=== PATIENT | male | born 1955 ===

== ENCOUNTER 2024-04-03 18:00 | Inpatient (IN) | payer MEDICARE, SELFPAY ==
[2024-04-03] VITALS (7 sets, daily range): BP systolic 143–167; BP diastolic 81–95; PULSE 105–129; RESP 17–34; TEMP 36.7; O2SAT 88–100
--- NOTE | ~2024-04-03 | XR_ITS ---
EXAMINATION: XR foot RT min 3V DATE: 04/03/2024 19:46 INDICATION: Change of cellulitis at the right foot TECHNIQUE: Dorsoplantar, two oblique and lateral views of the right foot were obtained. COMPARISON: None. FINDINGS: Diffuse osteopenia. The second-fifth toes are quadrant. Bone alignment is otherwise normal. No fractu re. Polyarticular osteoarthritis, moderate to severe at the first metatarsophalangeal joint, moderate at the first interphalangeal joint and mild at multiple tarsometatarsal and remaining interphalangea l joints. Small plantar calcaneal spur. No cortical erosions or periosteal reaction. Soft tissues are unremarkable. IMPRESSION: 1. 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 N o acute osseous abnormality. Reviewed, dictated and finalized at location A. IMPRESSION: 1. 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 No acute osseous abnormality.
--- NOTE | ~2024-04-03 | US_ITS ---
US arterial ankle brachial ind INDICATION: Poor circulation to the right lower extremity TECHNIQUE: Segmental pressures and plethysmographic and Doppler waveforms of the brachial and lower e xtremity arteries were obtained. COMPARISON: None. FINDINGS: Right and left brachial artery pressures of 129 mm Hg and 130 mm Hg, respectively, are concordant (no rmal difference <= 30 mmHg). The right ankle-brachial index (SENDY) is 1.32 (normal >= 0.9-1.0). The right great toe-brachial index (TBI) is .81 (normal >= 0.60). The left SENDY is 1.27. The left TBI is .85. IMPRESSION: 1. Normal ankle-brachial indices. Reviewed, dictated and finalized at location B.
--- NOTE | ~2024-04-03 | US_ITS ---
EXAMINATION:US venous doppler LE RT INDICATION:Right lower extremity edema TECHNIQUE: Multiple grayscale, color flow and Doppler images of the right lower extremity deep venous systems were obtained and reviewed. COMPARISON:No prior studies for comparison. FINDINGS: The common femoral, superficial femoral and popliteal veins demonstrate normal respiratory variation, augmentation and compressibility. Color flow is also seen within the posterior tibial, pe roneal, greater saphenous and profunda veins. IMPRESSION: 1: No lower extremity deep venous thrombosis. Reviewed, dictated and finalized at location B.
--- NOTE | ~2024-04-03 | NM_ITS ---
EXAMINATION: NM bone 3 phase DATE: 04/06/2024 15:28 INDICATION: Osteopenia and lytic lesion in the right lower leg TECHNIQUE: 25.0 mCi Tc-99m HDP by intravenous route. Scintigrams of the bilateral thighs were obtain ed in angiographic, blood pool, and delayed phases. Additional whole body delayed scintigrams were ob tained. COMPARISON: None. FINDINGS: There is relatively symmetric activity in the bilateral thighs on the angiographic and immediate bloo d pool images. On the delayed images there is prominent asymmetric increased uptake of the bones in t he right foot, distal tibia and fibula without evident correlate on the prior CT images which suggest s sequela of regional hyperperfusion which could be due to complex regional pain syndrome or the prov ided history of cellulitis. Subtle increased uptake is/with 3 old healed fractures of the anterior right seventh-ninth ribs. Mayito tional mild uptake associated with the healing fracture of the right pubic body which is partially ob scured by the activity in the bladder. There is mild likely degenerative increased uptake at the medial compartments of both knees. There is asymmetric increased activity at the right femoral head likely related to osteonecrosis which is mor e extensive at the right femoral head. There is very subtle increased uptake at the mid right femoral diaphysis in the region of the centrally lytic bone lesion with peripheral sclerosis most consistent with a benign. Given the pattern of sclerosis would favor bone infarct over fibrous dysplasia. No ot her suspicious foci of abnormal bone uptake to suggest metastatic disease. IMPRESSION: 1. Prominent asymmetric increased bone activity throughout the right foot and at the distal right ti martha and fibula which suggests sequela of hyperemia such as in the setting of complex regional pain sy ndrome or cellulitis. 2. Minimal increased uptake associated with the peripherally sclerotic lesion along the right femoral diaphysis favoring a benign etiology such as bone infarct or less likely fibrous dysplasia. No other suspicious bone lesions identified to suggest metastatic disease. 3. Asymmetric mild uptake at the right femoral head likely related to the osteonecrosis seen on CT wh ich is more extensive at the right femoral head at the left. Reviewed, dictated and finalized at location A. IMPRESSION: 1. Prominent asymmetric increased bone activity throughout the right foot and at the distal right tibia and fibula which suggests sequela of hyperemia such a s in the setting of complex regional pain syndrome or cellulitis. 2. Minimal increased uptake associated with the peripherally sclerotic lesion a long the right femoral diaphysis favoring a benign etiology such as bone infarc t or less likely fibrous dysplasia. No other suspicious bone lesions identified to suggest metastatic disease. 3. Asymmetric mild uptake at the right femoral head likely related to the osteo necrosis seen on CT which is more extensive at the right femoral head at the le ft.
--- NOTE | ~2024-04-03 | XR_ITS ---
EXAMINATION: XR chest 1V portable DATE: 04/03/2024 18:58 INDICATION: Weakness TECHNIQUE: frontal view of the chest was obtained. COMPARISON: None FINDINGS: Mild streaky opacities in the left lower lung zone most likely atelectasis with mild elevation of the left hemidiaphragm. Calcified nodules in the right upper lung zone consistent with old granulomatous disease. No pulmonary edema, pleural effusion or pneumothorax. Heart size is normal. Atherosclerotic aorta. IMPRESSION: 1. Mild elevation left hemidiaphragm with mild streaky opacities in the left lower lung zone and favo r atelectasis over pneumonia. Reviewed, dictated and finalized at location A. IMPRESSION: 1. Mild elevation left hemidiaphragm with mild streaky opacities in the left lo wer lung zone and favor atelectasis over pneumonia.
--- NOTE | ~2024-04-03 | XR_ITS ---
EXAMINATION: XR hip BI 2V w AP pelvis DATE: 04/04/2024 14:41 INDICATION: Femoral head osteonecrosis. Fracture. TECHNIQUE: An anteroposterior view the pelvis and 2 views of each hip on a total of 6 radiographs wer e obtained. COMPARISON: CT abdomen and pelvis 04/03/2024 FINDINGS: Alignment is normal. There is an old fracture deformity of right parasymphyseal pubis. Ther e is sclerosis in the femoral heads, consistent with osteonecrosis. There is mild osteoarthritis of t he hips. Partially visualized is expansion of right femoral diaphysis with sclerosis. There is severe lumbar spondylosis. IMPRESSION: 1. Osteonecrosis of the femoral heads. 2. Mild osteoarthritis of the hips. 3. Partially visualized expansion and sclerosis of right femoral diaphysis, which may be an old heale d fracture or fibrous dysplasia. Reviewed, dictated and finalized at location A. IMPRESSION: 1. Osteonecrosis of the femoral heads. 2. Mild osteoarthritis of the hips. 3. Partially visualized expansion and sclerosis of right femoral diaphysis, whi ch may be an old healed fracture or fibrous dysplasia.
--- NOTE | ~2024-04-03 | CT_ITS ---
EXAMINATION: CT LE RT wo con DATE: 04/04/2024 18:06 INDICATION: Right lower limb pain and erythema. TECHNIQUE: Computed tomography (CT) of the right lower limb was performed without intravenous contras t. Automated exposure control and iterative reconstruction technique were employed. The dose-length p roduct was 2094.51 mGy-cm. COMPARISON: Pelvis and hip radiographs 04/04/2024 FINDINGS: The bladder is markedly distended. There is prominent fat in right inguinal canal that may be a hernia. There is subcutaneous edema in the lower leg. There is an old healed fracture deformity of right parasymphyseal pubis. There is sclerosis in right femoral head, consistent with osteonecrosi s. There is mild right hip osteoarthritis. There is a 9.1 cm lytic lesion in femoral diaphysis with p eripheral calcifications. IMPRESSION: 1. Osteonecrosis in right femoral head. 2. Mild right hip osteoarthritis. 3. Lytic lesion in right femoral diaphysis. The differential diagnosis includes osteonecrosis and dhruv ign lesion such as fibrous dysplasia. Reviewed, dictated and finalized at location A. IMPRESSION: 1. Osteonecrosis in right femoral head. 2. Mild right hip osteoarthritis. 3. Lytic lesion in right femoral diaphysis. The differential diagnosis includes osteonecrosis and benign lesion such as fibrous dysplasia.
--- NOTE | ~2024-04-03 | CT_ITS ---
EXAMINATION: CTA chest abdomen pelvis DATE: 04/03/2024 20:22 INDICATION: Sepsis TECHNIQUE: Computed tomographic angiography (CTA) of the chest, abdomen, and pelvis was performed wit h 100 mL Omnipaque-350 intravenous contrast. Volume-rendered 3D-reconstructions of the aorta and larg e arteries were constructed by the technologist on a separate workstation. Automated exposure control and iterative reconstruction technique were employed. The dose-length product was 708.1 mGy-cm. COMPARISON: None FINDINGS: Chest: Mild emphysema. Tree-in-bud opacities in the left upper lobe, right lower lobe and lingula consistent with pneumonia or other endobronchial spread of disease. Atelectasis/scarring in the lingula. No pul monary edema or pleural effusion. Heart size is normal. Atherosclerotic coronary artery calcification . No pericardial effusion. Atherosclerotic calcification without hemodynamic significant stenosis chen ng the normal caliber thoracic aorta and the great vessels arising from the arch. No dissection. No p athologically enlarged thoracic lymphadenopathy. Mild thoracic spondylosis. Abdomen and pelvis: Liver, gallbladder, spleen, pancreas, bilateral adrenal glands and left kidney are normal. 7 mm right renal cyst. There are few scattered colonic diverticula without adjacent inflammatory stranding to s uggest diverticulitis. No bowel obstruction. The appendix is not visualized. No pericecal inflammator y change to suggest acute appendicitis. Bladder is normal. No free intraperitoneal gas or fluid. No p athologically enlarged abdominal or pelvic lymphadenopathy. Abdominal aorta is normal in caliber with scattered tiny minimally significant atherosclerotic plaque and no dissection. Duplicated right giacomo l arteries. Osteonecrosis at the bilateral femoral heads, more extensive on the right and without col lapse of the articular surface. Likely subacute fracture at the right pubic body. Mild to moderate usama mbar and severe lumbosacral spondylosis. IMPRESSION: 1. Scattered tree-in-bud opacities in the left upper lobe, lingula and right lower lobe consistent wi th multifocal pneumonia. 2. No acute intra-abdominal/pelvic process. 3. Osteonecrosis at the bilateral femoral heads and subacute fracture of the right pubic body. Reviewed, dictated and finalized at location A. IMPRESSION: 1. Scattered tree-in-bud opacities in the left upper lobe, lingula and right lo wer lobe consistent with multifocal pneumonia. 2. No acute intra-abdominal/pelvic process. 3. Osteonecrosis at the bilateral femoral heads and subacute fracture of the ri ght pubic body.
--- NOTE | 2024-04-03 18:07 | ECG_ITS ---
Test Date: 2024-04-03 18:08:37 Measurements Intervals [place] Rate: 123 P: 52 IA: 189 QRS: 5 QRSD: 66 T: 71 QT: 278 QTc: 398 Interpretive Statements SINUS TACHYCARDIA LOW QRS VOLTAGE IN LIMB LEADS CANNOT R/O SEPTAL INFARCT, AGE INDETERMINATE BASELINE ARTIFACT- I, II, III, AVR, AVL, AVF, V1-V6 ABNORMAL ECG No previous ECG available for comparison Electronically Signed On 04-04-2024 06:43:35 CDT by Cory Fried D.O.
[2024-04-03 18:23] LABS: Basophils Absolute Auto 0.1 K/mm3 (0.0-0.1); Basophils Percent Auto 0.8 % (0.2-1.2); Eosinophils Percent Auto 0.6 % (0-4.4); Immature Granulocyte Absolute 0.02 K/mm3 (0.00-0.031); Immature Granulocyte Percent A 0.3 % (0-0.5); Lymphocytes Absolute Auto 0.87 K/mm3 (0.9-3.2); Lymphocytes Percent Auto 14.1 % (18.3-44.2); Mean Corpuscular Hemoglobin 31.9 pg (26-34); Mean Corpuscular Volume 93.8 fl (80-100); Mean Platelet Volume 7.8 fl (7.4-10.4); Monocytes Absolute Auto 0.3 K/mm3 (0.1-0.6); Monocytes Percent Auto 4.7 % (2.6-8.5); Neutrophils Absolute Auto 4.9 K/mm3 (1.3-6.7); Neutrophils Percent Auto 79.5 % (45.5-73.1); Platelet Count Result 235 k/mm3 (150-375); Red Blood Count 5.01 M/mm3 (4.6-6.20); Red Cell Distribution Width 12.9 % (11.5-14.5); White Blood Count 6.2 K/mm3 (4.5-10.0)
[2024-04-03 18:34] LABS: Alanine Aminotransferase 24 U/L (6-50); Albumin Level 4.1 g/dL (3.5-5.1); Alkaline Phosphatase 234 U/L (38-126); Anion Gap 11 mmol/L (4-12); Aspartate Amino Transferase 41 U/L (17-59); Bilirubin,Total 1.4 mg/dL (0.2-1.3); Blood Urea Nitrogen 8 mg/dL (9-20); Calcium 9.1 mg/dL (8.4-10.2); Carbon Dioxide 23 mmol/L (22-30); Chloride 99 mmol/L (98-107); Estimated CRCL calculation 107 ml/min; Estimated Glomerular Filt Rate > 60; Glucose 113 mg/dL (65-110); Potassium 4.4 mmol/L (3.4-5.0); Sodium 133 mmol/L (137-145)
[2024-04-03 19:25] LABS: Alveolar/Arterial O2 Gradient 89.3 mmHg; Base Excess ABG -0.5 mEq/l (+/-2.0); Fractional Inspired Oxygen 28 %; HCO3 ABG 22.9 mEq/l (22.0-26.0); Oxygen Content ABG 20.3 %vol (16.0-22.0); Oxygen Saturation ABG 94.8 % (95.0-100.0); Oxyhemoglobin 93.7 % THb (90.0-100.0); PCO2 ABG 34.4 mmHg (35.0-45.0); PO2 ABG 69.8 mmHg (80.0-100.0); PO2 FiO2 Ratio Arterial Blood 2.49 %; Total Hemoglobin 15.4 g/dL (12.0-18.0); pH ABG 7.442 (7.350-7.450)
[2024-04-03 19:27] LABS: Device NASAL CANNULA; Modified Allen's Test Pass; Site Drawn RIGHT RADIAL
[2024-04-03 19:34] LABS: Lactic Acid Reflex 1.4 mmol/L (0.7-2.0)
[2024-04-03 19:35] LABS: Lipase 227 U/L (23-300); Magnesium 1.7 mg/dL (1.6-2.3)
[2024-04-03 19:38] LABS: INR 1.1; Partial Thromboplastin Time 28.5 Seconds (22.3-36.8); Prothrombin Time 14.3 Seconds (11.1-14.7)
[2024-04-03 19:47] LABS: NT Pro B Type Natriuretic Pept 224 pg/mL (19.9-100); Troponin I < 0.012 ng/mL (0.000-0.034)
[2024-04-03] MEDS: SODIUM CHLORIDE 0.9% IV 3,000 ML 999 ML IV CONT (19:49)
[2024-04-03 20:01] LABS: Influenza A QL RT-PCR Negative (Negative); Influenza B QL RT-PCR Negative (Negative); RSV RNA, RT-PCR Negative (Negative); SARS-CoV-2 RNA PCR Negative (Negative)
[2024-04-03] MEDS: cefTRIAXone 2 GM/NS 100 ML 2 GM/100 ML BAG IVPB (20:32)
--- NOTE | 2024-04-03 20:39 | ED.GENADULT ---
HPI - General Adult General Chief complaint: Weakness Stated complaint: weakness Time Seen by Provider: 04/03/24 18:53 History of Present Illness HPI narrative: A 68-year-old male presenting ED with chief complaint of generalized weakness. The patient developed cellulitis last week was admitted at [place] over the weekend. He was discharged home after being treated for cellulitis of his right foot he was discharged earlier today but was too weak to get into the house without assistance. His then called the ambulance and had him brought to our hospital because she does not trust [facility] any longer. At this time the patient is complaining of weakness. He does not have fever chills nausea vomiting diarrhea. He feels short of breath but he says that is normal for him since he has COPD. No abdominal pain or urinary symptoms. He says his foot is still not the right color although it is dramatically improved from over the weekend. Related Data Allergies Allergy/AdvReac Type Severity Reaction Status Date / Time Penicillins Allergy Intermediate Rash Verified 04/03/24 19:48 [facility] Past Medical History Medical History (Updated 04/04/24 @ 00:03 by Jaun Valencia MD) COPD (chronic obstructive pulmonary disease) Exam Narrative: APPEARANCE: Patient is ill-appearing Head: atraumatic. EYES: EOMI, NOSE: Atraumatic NECK: Trachea midline RESPIRATORY: Tachypneic, no wheezing, hypoxic room CARDIOVASCULAR: Tachycardic, right foot is a violaceous color, warm but not hot to touch. brisk cap refill.pulses intact sensation light touch intact ABDOMINAL: Non-distended soft nontender, : No overlying skin changes, swelling or crepitus MUSCULOSKELETAl: No obvious deformities NEURO: Alert. Moving 4/4 extremities SKIN:: Warm, dry. Normal color PSYCHIATRIC: Normal affect Course Vital Signs Vital signs: Vital Signs Temperature 98.1 F 04/03/24 18:00 Pulse Rate 129 H 04/03/24 18:00 Respiratory Rate 22 H 04/03/24 18:00 Blood Pressure 167/95 H 04/03/24 18:00 Pulse Oximetry 88 L 04/03/24 18:00 Oxygen Delivery Room Air 04/03/24 18:00 Temperature 98.1 F 04/03/24 18:00 Pulse Rate 105 H 04/03/24 21:38 Respiratory Rate 26 H 04/03/24 21:38 Blood Pressure 143/81 H 04/03/24 19:42 Pulse Oximetry 100 04/03/24 21:38 Oxygen Delivery Nasal Cannula 04/03/24 19:43 Oxygen Flow Rate 2 04/03/24 19:43 Medical Decision Making [facility] Narrative Medical decision making narrative: -Course: 68-year-old male presenting to our ED 1 day after being discharged [place] for cellulitis. On exam patient is ill-appearing. He is hypoxic on room air requiring supplemental oxygen. He is also tachypneic. Full sepsis workup has been ordered. He has been given a 30 cc/kilogram bolus. Started on ceftriaxone azithromycin and vancomycin while we await workup results. Records requested from [place]/ placed in chart. Sepsis workup significant for multi for focal pneumonia seen on CT scan. Laboratory studies within normal limits. Patient will be admitted hospital for further management his pneumonia. He will likely need rehab placement due to severe weakness. 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 Was placed on Librium while it [place] although he did not like how it made him feel. -External Chart Review: [place] records show the patient was treated for cellulitis, hyponatremia and COPD -Hx from independent Sources: at bedside -Independent interpretation of studies: White count 6.2. Hemoglobin 16.0, Lactic normal ABG 7.442/34.4/69.8/22.9 on 2 L nasal cannula -impression hypoxic respiratory failure requiring supplemental oxygen Metabolic panel unremarkable. Troponin BNP normal UA unremarkable. Viral swabs negative MRSA negative
[2024-04-03] MEDS: AZITHROMYCIN 500 MG/NS 250 ML 500 MG/250 ML BAG 250 MG IVPB (21:02)
[2024-04-03 21:04] LABS: Appearance Urine Clear (Clear); Blood Urine Negative (Negative); Color Urine Yellow (Yellow); Glucose Urine UA Negative (Negative); Ketones Urine Negative (Negative); Nitrate Urine Negative (Negative); Protein Urine Negative (Negative); Specific Grav Ur 1.015 (1.001-1.035); pH Urine 5.5 (5.0-9.0)
[2024-04-03 21:05] LABS: Add Urine Microscopic? NO; Bilirubin Urine Negative (Negative); Leukocyte Esterase Ur Negative LEU/UL (Negative); Urobilinogen Urine 0.2 mg/dL (<2.0)
[2024-04-03 21:19] LABS: MRSA (PCR) NOT DETECTED (NOT DETECTE)
[2024-04-03] MEDS: VANCOMYCIN 2,000 MG/NS 500 ML 2,000 MG/500 ML BAG 250 MG IVPB (22:29)
[2024-04-04] VITALS (18 sets, daily range): BP systolic 120–155; BP diastolic 53–86; PULSE 70–102; RESP 16–20; TEMP 36.4–36.5; O2SAT 96–100; BMI 25.5
--- NOTE | 2024-04-04 00:11 | ECG_ITS ---
Test Date: 2024-04-04 00:00:11 Measurements Intervals [place] Rate: 96 P: 92 FL: 211 QRS: 24 QRSD: 67 T: 76 QT: 341 QTc: 433 Interpretive Statements SINUS RHYTHM WITH FIRST DEGREE AV BLOCK CANNOT R/O SEPTAL INFARCT, AGE INDETERMINATE BASELINE ARTIFACT- I, III, AVR, AVL, AVF, V1-V6 ABNORMAL ECG Compared to ECG 04/03/2024 18:08:37 HEART RATE HAS DECREASED First degree AV block now present Electronically Signed On 04-04-2024 06:29:40 CDT by Cory Fried D.O.
--- NOTE | 2024-04-04 00:41 | PM.IMHP ---
H&P: HPI History of Present Illness Date/Time: 04/03/24 23:20 Chief Complaint: Weakness, unable to walk Narrative: 68-year-old male with past medical history of COPD/emphysema with continued tobacco use, alcoholism, essential hypertension, and recent hospitalization at [facility] for cellulitis of the right foot who presented to the ER via EMS from home due to increased weakness and difficulty ambulating. Source of information is from records from [facility] from recent hospitalization and from patient report. The patient is only a fair historian at best. The patient was admitted to [facility] for cellulitis and was discharged from [facility] on the morning of the . When he got home the patient was so weak that he could not get into his house without assistance. Patient's daughter then called EMS. According to ER notes the patient was brought to our facility because the family did not trust the patient to go back to [facility]. When EMS arrived at the patient's home patient was soaked in urine including his shirt. He was reportedly alert orient x3 at the time of their arrival. At the time of my evaluation the patient was alert oriented to person place and month but thought the year was 2027. He laughed because previously in the day he had reported that the year was 2067. The patient reports that he has a chronic cough but that he has been or so over the last few days. He is noted to have thick yellow mucus at the corners of his mouth. However the patient is also drinking Mountain Dew at the time of my evaluation. He denies having fevers or chills. He denies any chest pain. EMS reported the patient was hypoxic on arrival with oxygen saturations of 89%. His based on 2 L nasal cannula and sats improved to 97%. At the time my evaluation the ER patient was on 2 L nasal cannula satting 100%. The patient reports that his leg with that was treated for cellulitis is better. He denies any pain in the leg. The leg is noted to be swollen and slightly violaceous in color but has good cap refill and 2+ pulses. He denies any nausea or vomiting. He reports feeling thirsty. He reports normal bowel movements. His abdomen is distended but he reports that this is due to his beer belly. He states that at times he has went up to a month or more without drinking alcohol in order to lose weight but he always goes back to drinking alcohol. He does get tremulous if he does not drink alcohol but has never went through overt withdrawal. He has not had any alcohol since prior to his admission at [facility]. Review of Systems Review of Systems: 12 systems were reviewed with pertinent positives and negatives per HPI. Except as documented in the HPI, all other systems were reviewed and are negative. [facility] Past Medical History Medical History (Updated 04/04/24 @ 06:21 by Kaity Newberry DO) Alcoholism Chronic hyponatremia COPD (chronic obstructive pulmonary disease) Essential hypertension Surgical History Surgical History (Updated 04/04/24 @ 02:50 by Kaity Newberry DO) Status post cataract extraction of both eyes with insertion of intraocular lens Family History Family History Mother Cerebrovascular accident Social History Social History (Updated 04/04/24 @ 06:51 by Kaity Newberry DO) Social History: Patient lives in his own home a he had his son of suicide. His daughter is his surrogate decision maker. He is a retired sheet metal operator. He used to smoke 2 packs of cigarettes per day but quit smoking approximately 1995. He drinks about 10 beers a day and has done so for many years. He smokes marijuana frequently and last smoked marijuana 03/31/2024. Code status: DNR/DNI Surrogate decision maker: Kelvin Bruno (daughter) Smoking packs per day: 2 Smoking cigarettes per day: 40.0 Years smoked: 42 Smoking pack-years: 84.00
[2024-04-04 00:51] LABS: Troponin I < 0.012 ng/mL (0.000-0.034)
--- NOTE | 2024-04-04 01:51 | ADMGEN ---
This patient, Pranav Bruno, was admitted to Medical Room 243-01. Patient/family oriented to hospital policies and general routines including ID bracelet, bed and alarms, visiting hours, pain management, procedures, bathroom and other care routines, personal items, smoking policy, room service/diet, and visiting hours. Information on how to activate the Rapid Response Team has been discussed. Patient/Family are encouraged to report perceived risks to care and to ask questions if they do not understand what they are told or what they should do.
[2024-04-04] MEDS: SODIUM CHLORIDE 0.9% IV 1,000 ML 100 ML IV CONT (06:40)
[2024-04-04 06:46] LABS: Basophils Percent Auto 0.7 % (0.2-1.2); Eosinophils Percent Auto 0.2 % (0-4.4); Hematocrit 40.6 % (42.0-52.0); Hemoglobin 12.9 g/dL (14.0-18.0); Immature Granulocyte Absolute 0.02 K/mm3 (0.00-0.031); Immature Granulocyte Percent A 0.5 % (0-0.5); Lymphocytes Absolute Auto 0.81 K/mm3 (0.9-3.2); Lymphocytes Percent Auto 19.2 % (18.3-44.2); Mean Corpuscular HGB Conc 31.8 g/dl (32-36); Mean Corpuscular Hemoglobin 31.9 pg (26-34); Mean Corpuscular Volume 100.5 fl (80-100); Mean Platelet Volume 8.2 fl (7.4-10.4); Monocytes Absolute Auto 0.4 K/mm3 (0.1-0.6); Monocytes Percent Auto 8.8 % (2.6-8.5); Neutrophils Percent Auto 70.6 % (45.5-73.1); Platelet Count Result 175 k/mm3 (150-375); Red Blood Count 4.04 M/mm3 (4.6-6.20); Red Cell Distribution Width 13.1 % (11.5-14.5); White Blood Count 4.2 K/mm3 (4.5-10.0)
[2024-04-04 06:48] LABS: Anion Gap 10 mmol/L (4-12); Blood Urea Nitrogen 5 mg/dL (9-20); Calcium 8.1 mg/dL (8.4-10.2); Carbon Dioxide 17 mmol/L (22-30); Chloride 101 mmol/L (98-107); Estimated CRCL calculation 126 ml/min; Estimated Glomerular Filt Rate > 60; Glucose 105 mg/dL (65-110); Sodium 128 mmol/L (137-145)
[2024-04-04] MEDS: IPRATROPIUM 0.5 MG/ALBUTEROL SULFATE 2.5 MG AMPUL.NEB 3 ML INHALATION ×3 (08:10→20:36)
[2024-04-04] MEDS: FOLIC ACID 1 MG TABLET PO (08:31)
[2024-04-04] MEDS: lisinopriL 10 MG TABLET PO (08:32)
[2024-04-04] MEDS: THIAMINE HCL 100 MG TABLET PO (08:32)
[2024-04-04] MEDS: ENOXAPARIN 40 MG/0.4 ML SYRINGE SUB-Q (08:32)
[2024-04-04] MEDS: VANCOMYCIN 1,500 MG/NS 500 ML 1,500 MG/500 ML BAG 250 MG IVPB ×2 (11:06→22:34)
--- NOTE | 2024-04-04 11:27 | P.PNIM_ITS ---
Progress Note: A&P Assessment and Plan (1) Pneumonia: Qualifiers: Laterality: bilateral Lung location: unspecified part of lung Pneumonia type: due to unspecified organism Qualified Code(s): J18.9 - Pneumonia, unspecified organism Code(s): J18.9 - Pneumonia, unspecified organism Status: Acute Assessment and Plan: * As evidenced by CTA. * Continue abx therapy and supportive measures.. * Cultures pending. * Trend labs and VS. * Supplemental oxygen if needed. (2) Sepsis: Qualifiers: Sepsis type: sepsis due to unspecified organism Sepsis acute organ dysfunction status: with acute organ dysfunction Severe sepsis acute organ dysfunction type: acute respiratory failure Acute respiratory failure type: with hypoxia Severe sepsis shock status: without septic shock Qualified Code(s): A41.9 - Sepsis, unspecified organism; R65.20 - Severe sepsis without septic shock; J96.01 - Acute respiratory failure with hypoxia Code(s): A41.9 - Sepsis, unspecified organism Status: Acute Assessment and Plan: * See Plan for #1 (3) Hypoxic respiratory failure: Qualifiers: Chronicity: acute Qualified Code(s): J96.01 - Acute respiratory failure with hypoxia Code(s): J96.91 - Respiratory failure, unspecified with hypoxia Status: Acute Assessment and Plan: * Secondary to PNA * See Problem #1 (4) COPD (chronic obstructive pulmonary disease): Qualifiers: COPD type: COPD with acute lower respiratory infection Qualified Code(s): J44.0 - Chronic obstructive pulmonary disease with (acute) lower respiratory infection Code(s): J44.9 - Chronic obstructive pulmonary disease, unspecified Status: Chronic Assessment and Plan: * Not currently in acute exacerbation. * Adjust treatment as needed. * Monitor VS and labs. (5) Essential hypertension: Code(s): I10 - Essential (primary) hypertension Status: Chronic Assessment and Plan: * Continue home Lisinopril * Monitor VS * Currently Normotensive. (6) Alcoholism: Code(s): F10.20 - Alcohol dependence, uncomplicated Status: Chronic Assessment and Plan: * [facility] protocol and measures. * Continue thiamine and Folic acid (7) Osteonecrosis: Code(s): M87.9 - Osteonecrosis, unspecified Status: Acute Assessment and Plan: * As identified per CTA C/A/P on bilateral femoral heads * Consult Orthopedics. (8) Pubic bone fracture: Code(s): S32.509A - Unspecified fracture of unspecified pubis, initial encounter for closed fracture Status: Acute Assessment and Plan: * As noted on CTA C/A/P, subacute fx of right pubic body. * Consult Orthopedics. Time Spent With Patient Time with patient: 25 - 35 minutes Subjective Date/time seen: 04/04/2415 Interval history: Weakness, unable to walk Narrative: 68-year-old male with past medical history of COPD/emphysema with continued tobacco use, alcoholism, essential hypertension, and recent hospitalization at [place] for cellulitis of the right foot who presented to the ER via EMS from home due to increased weakness and difficulty ambulating. Source of information is from records from [facility] from recent hospitalization and from patient report. The patient is only a fair historian at best. The patient was admitted to [facility] for cellulitis and was discharged from [place] on the morning of the . When he got home the patient was so weak that he could not get into h
--- NOTE | 2024-04-04 11:27 | PM.IMPN ---
Progress Note: A&P Assessment and Plan (1) Pneumonia: Qualifiers: Laterality: bilateral Lung location: unspecified part of lung Pneumonia type: due to unspecified organism Qualified Code(s): J18.9 - Pneumonia, unspecified organism Code(s): J18.9 - Pneumonia, unspecified organism Status: Acute Assessment and Plan: As evidenced by CTA. Continue abx therapy and supportive measures.. Cultures pending. Trend labs and VS. Supplemental oxygen if needed. (2) Sepsis: Qualifiers: Sepsis type: sepsis due to unspecified organism Sepsis acute organ dysfunction status: with acute organ dysfunction Severe sepsis acute organ dysfunction type: acute respiratory failure Acute respiratory failure type: with hypoxia Severe sepsis shock status: without septic shock Qualified Code(s): A41.9 - Sepsis, unspecified organism; R65.20 - Severe sepsis without septic shock; J96.01 - Acute respiratory failure with hypoxia Code(s): A41.9 - Sepsis, unspecified organism Status: Acute Assessment and Plan: See Plan for #1 (3) Hypoxic respiratory failure: Qualifiers: Chronicity: acute Qualified Code(s): J96.01 - Acute respiratory failure with hypoxia Code(s): J96.91 - Respiratory failure, unspecified with hypoxia Status: Acute Assessment and Plan: Secondary to PNA See Problem #1 (4) COPD (chronic obstructive pulmonary disease): Qualifiers: COPD type: COPD with acute lower respiratory infection Qualified Code(s): J44.0 - Chronic obstructive pulmonary disease with (acute) lower respiratory infection Code(s): J44.9 - Chronic obstructive pulmonary disease, unspecified Status: Chronic Assessment and Plan: Not currently in acute exacerbation. Adjust treatment as needed. Monitor VS and labs. (5) Essential hypertension: Code(s): I10 - Essential (primary) hypertension Status: Chronic Assessment and Plan: Continue home Lisinopril Monitor VS Currently Normotensive. (6) Alcoholism: Code(s): F10.20 - Alcohol dependence, uncomplicated Status: Chronic Assessment and Plan: [facility] protocol and measures. Continue thiamine and Folic acid (7) Osteonecrosis: Code(s): M87.9 - Osteonecrosis, unspecified Status: Acute Assessment and Plan: As identified per CTA C/A/P on bilateral femoral heads Consult Orthopedics. (8) Pubic bone fracture: Code(s): S32.509A - Unspecified fracture of unspecified pubis, initial encounter for closed fracture Status: Acute Assessment and Plan: As noted on CTA C/A/P, subacute fx of right pubic body. Consult Orthopedics. Time Spent With Patient Time with patient: 25 - 35 minutes Subjective Date/time seen: 04/04/24814 Interval history: Weakness, unable to walk Narrative: 68-year-old male with past medical history of COPD/emphysema with continued tobacco use, alcoholism, essential hypertension, and recent hospitalization at [place] for cellulitis of the right foot who presented to the ER via EMS from home due to increased weakness and difficulty ambulating. Source of information is from records from [facility] from recent hospitalization and from patient report. The patient is only a fair historian at best. The patient was admitted to [facility] for cellulitis and was discharged from [place] on the morning of the . When he got home the patient was so weak that he could not get into his house without assistance. Patient's daughter then called EMS. According to ER notes the patient was brought to our facility because the family did not trust the patient to go back to [place]. When EMS arrived at the patient's home patient was soaked in urine including his shirt. He was reportedly alert orient x3 at the time of their arrival. At the time of my evaluation the patient was alert
--- NOTE | 2024-04-04 15:29 | PC.NURSE ---
On 04/04/24, the student, [Silas Blackmon], provided care and completed [facility] documentation on this patient. I have reviewed the student's documentation and agree with the findings.
--- NOTE | 2024-04-04 16:20 | PM.CNOR ---
Assessment and Plan Assessment and plan (1) Osteonecrosis: Code(s): M87.9 - Osteonecrosis, unspecified Status: Acute Assessment and Plan: CTA performed due to pneumonia which reveals osteonecrosis at the bilateral femoral heads and a likely a subacute fracture at the right pubic body. Plain radiographs of bilateral hips and pelvis ordered. Radiographs reveal osteonecrosis of the femoral heads, mild hip OA and a partially visualized expansion and sclerosis of the right femoral diaphysis. Per Radiology, this may be an old healed fracture or fibrous dysplasia. On exam, patient has no pain with internal or external rotations of the hips bilaterally. No recollection of acute recent injury. AVN chronic He does have difficulty ambulating on the right lower extremity with significant erythema to the leg. Patient was recently treated for cellulitis. Foot radiographs reveal polyarticular osteoarthritis in the right fore and midfoot, moderate to severe at the great toe. No acute osseous abnormality. ABIs of the right lower extremity are normal. Doppler negative for acute DVT. Right lower extremity redness/pain and failure to improve with recent IV antibiotics for cellulitis at [facility]. Concern for possible early Charcot changes. Would recommend CT of the RLE to evaluate the foot/ankle for Charcot changes and evaluation of the partially visualized expansion and sclerosis of the right femoral diaphysis seen on radiographs. Await PT/OT recommendations of the RLE pending CT scan results. (2) Pubic bone fracture: Code(s): S32.509A - Unspecified fracture of unspecified pubis, initial encounter for closed fracture Status: Acute Assessment and Plan: Asymptomatic. No surgical indications. WBAT with PT/OT pending further evaluation of the RLE on CT scan. History of Present Illness HPI Consult date: 04/04/24 Chief complaint: Pneumonia Narrative: 68-year-old male admitted with right lower extremity cellulitis due to increased weakness and difficulty ambulating. Per the medical records, the patient had a recent hospitalization at [facility]. He was discharged from the hospital yesterday but was so weak that he could not get into his house without assistance. He was then brought to our emergency room for further evaluation. Patient does have a history of alcoholism without withdrawal symptoms. The patient was admitted for pneumonia and respiratory failure. He had a CTA performed due to pneumonia at which revealed incidental findings of osteonecrosis of bilateral hips and a pubic bone fracture. Orthopedic consult requested. Review of Systems Review of Systems: All systems reviewed & are unremarkable except as noted in HPI and below PMFSH Past Medical History Medical History Alcoholism Chronic hyponatremia COPD (chronic obstructive pulmonary disease) Essential hypertension Osteonecrosis Pubic bone fracture Surgical History Surgical History Status post cataract extraction of both eyes with insertion of intraocular lens Family History Family History Mother Cerebrovascular accident Social History Social History Social History: Patient lives in his own home a he had his son of suicide. His daughter is his surrogate decision maker. He is a retired sheet rock nailer. He used to smoke 2 packs of cigarettes per day but quit smoking approximately 1995. He drinks about 10 beers a day and has done so for many years. He smokes marijuana frequently and last smoked marijuana 03/31/2024. Code status: DNR/DNI Surrogate decision maker: Kelvin Bruno (daughter) Smoking packs per day: 2 Smoking cigarettes per day: 40.0 Years smoked: 42 Sm
[2024-04-04] MEDS: cefTRIAXone 2 GM/NS 100 ML 2 GM/100 ML BAG IVPB (20:25)
[2024-04-04] MEDS: AZITHROMYCIN 500 MG/NS 250 ML 500 MG/250 ML BAG 250 MG IVPB (21:02)
[2024-04-05] VITALS (15 sets, daily range): BP systolic 118–152; BP diastolic 72–84; PULSE 70–88; RESP 18–20; TEMP 36.6; O2SAT 95–100
[2024-04-05 06:20] LABS: Estimated CRCL calculation 126 ml/min; Estimated Glomerular Filt Rate > 60
--- NOTE | 2024-04-05 06:57 | PM.IMPN ---
Progress Note: A&P Assessment and Plan (1) Hypoxic respiratory failure: Qualifiers: Chronicity: acute Qualified Code(s): J96.01 - Acute respiratory failure with hypoxia Code(s): J96.91 - Respiratory failure, unspecified with hypoxia Status: Acute Assessment and Plan: On arrival patient hypoxic to 89% requiring 2 L NC (baseline RA). Likely secondary to pneumonia. - Back to baseline RA - Monitor vital signs, neuro status and patient is a fall risk - Oxygen via NC; wean as tolerated. Keep SpO2 greater than 88% (2) Sepsis: Qualifiers: Acute respiratory failure type: with hypoxia Sepsis acute organ dysfunction status: with acute organ dysfunction Sepsis type: sepsis due to unspecified organism Severe sepsis acute organ dysfunction type: acute respiratory failure Severe sepsis shock status: without septic shock Qualified Code(s): A41.9 - Sepsis, unspecified organism; R65.20 - Severe sepsis without septic shock; J96.01 - Acute respiratory failure with hypoxia Code(s): A41.9 - Sepsis, unspecified organism Status: Acute Assessment and Plan: Meets SIRS criteria: tachycardia, tachypnea, and suspected source of pneumonia - lactic acid: 1.4 - suspected source: pneumonia - blood cultures drawn on 04/03: NGTD - UA: unremarkable - CXR: Mild elevation left hemidiaphragm with mild streaky opacities in the left lower lung zone and favor atelectasis over pneumonia. - Chest/abdomen/pelvis CTA: Scattered tree-in-bud opacities in the left upper lobe, lingula and right lower lobe consistent with multifocal pneumonia. (3) Pneumonia: Qualifiers: Laterality: bilateral Lung location: unspecified part of lung Pneumonia type: due to unspecified organism Qualified Code(s): J18.9 - Pneumonia, unspecified organism Code(s): J18.9 - Pneumonia, unspecified organism Status: Acute Assessment and Plan: CXR: Mild elevation left hemidiaphragm with mild streaky opacities in the left lower lung zone and favor atelectasis over pneumonia. Chest/abdomen/pelvis CTA: Scattered tree-in-bud opacities in the left upper lobe, lingula and right lower lobe consistent with multifocal pneumonia. - started on CAP tx: azithromycin ceftriaxone and vancomycin - Viral PCR: ordered for Flu/COVID/RSV - Blood cultures collected on 04/03: NGTD - originally requiring 2L NC, now back to baseline RA with no supplemental O2 requirement - Monitor vital signs, I&Os, neuro status and patient is a fall risk - Follow WBC, serum electrolytes, temperature curves and cultures (4) Essential hypertension: Code(s): I10 - Essential (primary) hypertension Status: Chronic Assessment and Plan: Chronic, well controlled on home medications. - Continue home Lisinopril - Monitor VS (5) Osteonecrosis: Code(s): M87.9 - Osteonecrosis, unspecified Status: Acute Assessment and Plan: Chest/abdomen/pelvis CTA: Osteonecrosis at the bilateral femoral heads and subacute fracture of the right pubic body. Hip/pelvis XR: Osteonecrosis of the femoral heads. Mild osteoarthritis of the hips. Partially visualized expansion and slerosis of the right femoral diaphysis, whihc may be an old healed fracture or fibrous dysplasia. Lower extremity CT: Osteonecrosis in right femoral head. Mild right hip osteoarthritis. Lytic lesion in right femoral diaphysis. The differential diagnosis includes osteonecrosis and benign lesion such as fibrous dysplasia. Consult Orthopedics. Avascular necrosis appears to be chronic. Await PT/OT recommendations (6) Pubic bone fracture: Code(s): S32.509A - Unspecified fracture of unspecified pubis, initial encounter for closed fracture Status: Acute Assessment and Plan: Chest/abdomen/pelvis CTA: Osteonecrosis at the bilateral femoral heads and subacute fracture of the right pubic body. Ortho consulted. Asymptomatic. No surgical indications. WBAT with PT
[2024-04-05] MEDS: IPRATROPIUM 0.5 MG/ALBUTEROL SULFATE 2.5 MG AMPUL.NEB 3 ML INHALATION ×3 (08:02→20:43)
[2024-04-05] MEDS: ENOXAPARIN 40 MG/0.4 ML SYRINGE SUB-Q (08:29)
[2024-04-05] MEDS: lisinopriL 10 MG TABLET PO (08:29)
[2024-04-05] MEDS: FOLIC ACID 1 MG TABLET PO (08:29)
[2024-04-05] MEDS: THIAMINE HCL 100 MG TABLET PO (08:29)
[2024-04-05 10:16] LABS: Alanine Aminotransferase 23 U/L (6-50); Albumin Level 3.3 g/dL (3.5-5.1); Alkaline Phosphatase 166 U/L (38-126); Anion Gap 7 mmol/L (4-12); Aspartate Amino Transferase 38 U/L (17-59); Bilirubin,Total 0.7 mg/dL (0.2-1.3); Blood Urea Nitrogen 5 mg/dL (9-20); Calcium 8.5 mg/dL (8.4-10.2); Carbon Dioxide 28 mmol/L (22-30); Chloride 96 mmol/L (98-107); Estimated CRCL calculation 126 ml/min; Estimated Glomerular Filt Rate > 60; Glucose 93 mg/dL (65-110); Potassium 3.6 mmol/L (3.4-5.0); Sodium 131 mmol/L (137-145)
[2024-04-05 10:20] LABS: Basophils Percent Auto 0.8 % (0.2-1.2); Eosinophils Absolute Auto 0.1 K/mm3 (0-0.3); Eosinophils Percent Auto 2.1 % (0-4.4); Hematocrit 40.5 % (42.0-52.0); Hemoglobin 13.5 g/dL (14.0-18.0); Immature Granulocyte Absolute 0.01 K/mm3 (0.00-0.031); Immature Granulocyte Percent A 0.3 % (0-0.5); Lymphocytes Absolute Auto 1.21 K/mm3 (0.9-3.2); Lymphocytes Percent Auto 31.7 % (18.3-44.2); Mean Corpuscular HGB Conc 33.3 g/dl (32-36); Mean Corpuscular Hemoglobin 31.8 pg (26-34); Mean Corpuscular Volume 95.5 fl (80-100); Mean Platelet Volume 7.9 fl (7.4-10.4); Monocytes Absolute Auto 0.5 K/mm3 (0.1-0.6); Monocytes Percent Auto 14.1 % (2.6-8.5); Platelet Count Result 188 k/mm3 (150-375); Red Blood Count 4.24 M/mm3 (4.6-6.20); Red Cell Distribution Width 13.2 % (11.5-14.5); White Blood Count 3.8 K/mm3 (4.5-10.0)
[2024-04-05 10:40] LABS: Vancomycin Trough 12.2 ug/mL (10.0-20.0)
[2024-04-05] MEDS: VANCOMYCIN 2,000 MG/NS 500 ML 2,000 MG/500 ML BAG 250 MG IVPB (11:15)
[2024-04-05 12:14] LABS: Influenza A QL RT-PCR Negative (Negative); Influenza B QL RT-PCR Negative (Negative); RSV RNA, RT-PCR Negative (Negative); SARS-CoV-2 RNA PCR Negative (Negative)
--- NOTE | 2024-04-05 14:34 | PM.PNORT ---
Progress Note: A&P Assessment and Plan (1) Avascular necrosis of bones of both hips: Code(s): M87.051 - Idiopathic aseptic necrosis of right femur; M87.052 - Idiopathic aseptic necrosis of left femur Status: Acute Assessment and Plan: bilateral hip femoral head AVN noted on CT scan. Minimal complaints of pain at this time. Radiographs show AVN without collapse at this time. Discussed association with alcohol. May continue with weight-bearing as tolerated. No surgical indication at this time. Plan Right lower extremity redness and swelling. CT scan of the right lower extremity shows fibrous dysplasia of the femoral diaphysis. Knee and ankle joints intact without evidence of AVN, collapse or Charcot changes. Patient states he did hit his toe a week ago and thinks the swelling is related to that. He also probably has venous stasis. Continue with conservative treatment. Weightbear as tolerated. Subjective Subjective Date/Time Seen: 04/05/24 14:34 Principal diagnosis: Bilateral hip AVN Interval history: patient awake and alert. States pain is improved. Working with therapy. Able to ambulate with Ananya Stedy. With standing has minimal complaints of pain in either leg. Exam Const: General: comfortable, ill appearing chronically and poor hygiene HENMT: Mouth: Yes moist mucous membranes Eyes: General: appearance normal, both eyes and all related structures Neck: Neck: supple and no JVD Resp: Effort & Inspection: normal respiratory effort Cardio: Rate: regular rate Rhythm: regular rhythm GI: Inspection: non-distended GI Palp: Yes Soft to palpation and No Tenderness to palpation present (GI) Neuro: General: gait normal Cognition (Neuro): normal cognition Speech: normal speech Extrem: Other: Patient has no pain with internal and external rotation of the hips bilaterally. Negative Shuck test. He does have extensive erythema of the right lower extremity from the mid haro to the dorsal and plantar aspect of the forefoot. Faintly palpable pedal pulse. No open wounds. Patient denies hip pain or groin pain. Endorses intermittent low back pain. Psych: Mental Status: mental status grossly normal Affect: normal affect Objective Data Vital Signs Vital Signs: Vital Signs - 24 hr 04/04/24 16:00 04/04/24 20:38 04/04/24 20:38 Temperature Pulse Rate 75 80 Respiratory Rate 18 Blood Pressure Pulse Oximetry 96 Oxygen Delivery Room Air 04/04/24 20:44 04/04/24 21:13 04/04/24 20:00 Temperature 97.6 F Pulse Rate 75 86 Respiratory Rate 18 16 Blood Pressure 142/60 H Pulse Oximetry 98 Oxygen Delivery Room Air 04/04/24 20:00 04/05/24 00:00 04/05/24 04:00 Temperature Pulse Rate 81 81 70 Respiratory Rate Blood Pressure Pulse Oximetry Oxygen Delivery 04/05/24 06:00 04/05/24 08:03 04/05/24 08:04 Temperature 97.8 F Pulse Rate 84 73 Respiratory Rate 18 18 Blood Pressure 118/84 Pulse Oximetry 98 95 Oxygen Delivery Room Air 04/05/24 08:11 04/05/24 13:38 04/05/24 13:45 Temperature Pulse Rate 76 76 81 Respiratory Rate 18 18 18 Blood Pressure Pulse Oximetry Oxygen Delivery 04/05/24 13:57 04/05/24 08:00 04/05/24 08:00 Temperature 97.8 F Pulse Rate 84 70 Respiratory Rate 18 Blood Pressure 152/72 H Pulse Oximetry 100 Oxygen Delivery Room Air 04/05/24 12:00 Temperature Pulse Rate 78 Respiratory Rate Blood Pressure Pulse Oximetry Oxygen Delivery Intake/Output Intake/Output: Intake & Output 04/02/24 04/03/24 04/04/24 04/05/24 23:59 23:59 23:59 23:59 Intake Total 3350 2180 562 Output Total 100 Balance 3350 2080 562 Meds/Results Medications: Active Medications Generic Name Dose Route Start Last Admin Trade Name Freq PRN Reason Stop Dose Admin Albuterol/Ipratropium 3 ml 04/04/24 02:00 04/05/24 13:36 Ipratropium 0.5 Mg/Albuterol Sulfate 2.5 Mg Ampul.Neb
--- NOTE | 2024-04-05 17:35 | PC.NURSE ---
Patient asking me to dispose of home prescription brought in by daughter-chlordiazepoxide 10mg capsule 12 pills- that was prescribed at [facility] over the weekend. Patient states the medication makes him feel extremely high . He asked if I would be able to get rid of the medication because he knows he will abuse it or sell it for $10 a pill when he gets home. He does not plan on quitting drinking upon discharge. All patient information attached to prescription bag and pill bottle has been shredded and medication was disposed of properly per patient's request
[2024-04-05] MEDS: CEFDINIR 300 MG CAPSULE PO (20:07)
[2024-04-05] MEDS: AZITHROMYCIN 250 MG TABLET 500 MG PO (20:07)
[2024-04-06] VITALS (9 sets, daily range): BP systolic 122–143; BP diastolic 62–80; PULSE 63–88; RESP 17–22; TEMP 36.4–36.6; O2SAT 96–99
[2024-04-06] MEDS: IPRATROPIUM 0.5 MG/ALBUTEROL SULFATE 2.5 MG AMPUL.NEB 3 ML INHALATION ×2 (02:57→18:29)
[2024-04-06 06:22] LABS: Basophils Percent Auto 0.8 % (0.2-1.2); Eosinophils Absolute Auto 0.1 K/mm3 (0-0.3); Eosinophils Percent Auto 2.4 % (0-4.4); Hematocrit 39.8 % (42.0-52.0); Hemoglobin 13.2 g/dL (14.0-18.0); Immature Granulocyte Absolute 0.01 K/mm3 (0.00-0.031); Immature Granulocyte Percent A 0.3 % (0-0.5); Lymphocytes Absolute Auto 1.39 K/mm3 (0.9-3.2); Lymphocytes Percent Auto 37.2 % (18.3-44.2); Mean Corpuscular HGB Conc 33.2 g/dl (32-36); Mean Corpuscular Hemoglobin 31.7 pg (26-34); Mean Corpuscular Volume 95.4 fl (80-100); Monocytes Absolute Auto 0.4 K/mm3 (0.1-0.6); Monocytes Percent Auto 11.8 % (2.6-8.5); Neutrophils Absolute Auto 1.8 K/mm3 (1.3-6.7); Neutrophils Percent Auto 47.5 % (45.5-73.1); Platelet Count Result 198 k/mm3 (150-375); Red Blood Count 4.17 M/mm3 (4.6-6.20); Red Cell Distribution Width 12.8 % (11.5-14.5); White Blood Count 3.7 K/mm3 (4.5-10.0)
[2024-04-06 06:32] LABS: Alanine Aminotransferase 23 U/L (6-50); Albumin Level 3.4 g/dL (3.5-5.1); Alkaline Phosphatase 165 U/L (38-126); Anion Gap 8 mmol/L (4-12); Aspartate Amino Transferase 39 U/L (17-59); Bilirubin,Total 0.8 mg/dL (0.2-1.3); Blood Urea Nitrogen 8 mg/dL (9-20); Calcium 8.5 mg/dL (8.4-10.2); Carbon Dioxide 25 mmol/L (22-30); Chloride 97 mmol/L (98-107); Estimated CRCL calculation 126 ml/min; Estimated Glomerular Filt Rate > 60; Glucose 91 mg/dL (65-110); Potassium 4.1 mmol/L (3.4-5.0); Sodium 130 mmol/L (137-145)
[2024-04-06] MEDS: CEFDINIR 300 MG CAPSULE PO ×2 (08:20→20:26)
[2024-04-06] MEDS: FOLIC ACID 1 MG TABLET PO (08:20)
[2024-04-06] MEDS: lisinopriL 10 MG TABLET PO (08:20)
[2024-04-06] MEDS: THIAMINE HCL 100 MG TABLET PO (08:20)
[2024-04-06] MEDS: ENOXAPARIN 40 MG/0.4 ML SYRINGE SUB-Q (08:23)
--- NOTE | 2024-04-06 08:52 | PM.IMPN ---
Progress Note: A&P Assessment and Plan (1) Hypoxic respiratory failure: Qualifiers: Chronicity: acute Qualified Code(s): J96.01 - Acute respiratory failure with hypoxia Code(s): J96.91 - Respiratory failure, unspecified with hypoxia Status: Acute Assessment and Plan: On arrival patient hypoxic to 89% requiring 2 L NC (baseline RA). Likely secondary to pneumonia. - Back to baseline RA - Monitor vital signs, neuro status and patient is a fall risk - Oxygen via NC; wean as tolerated. Keep SpO2 greater than 88% (2) Sepsis: Qualifiers: Acute respiratory failure type: with hypoxia Sepsis acute organ dysfunction status: with acute organ dysfunction Sepsis type: sepsis due to unspecified organism Severe sepsis acute organ dysfunction type: acute respiratory failure Severe sepsis shock status: without septic shock Qualified Code(s): A41.9 - Sepsis, unspecified organism; R65.20 - Severe sepsis without septic shock; J96.01 - Acute respiratory failure with hypoxia Code(s): A41.9 - Sepsis, unspecified organism Status: Acute Assessment and Plan: Meets SIRS criteria: tachycardia, tachypnea, and suspected source of pneumonia - lactic acid: 1.4 - suspected source: pneumonia - blood cultures drawn on 04/03: NGTD - UA: unremarkable - CXR: Mild elevation left hemidiaphragm with mild streaky opacities in the left lower lung zone and favor atelectasis over pneumonia. - Chest/abdomen/pelvis CTA: Scattered tree-in-bud opacities in the left upper lobe, lingula and right lower lobe consistent with multifocal pneumonia. (3) Pneumonia: Qualifiers: Laterality: bilateral Lung location: unspecified part of lung Pneumonia type: due to unspecified organism Qualified Code(s): J18.9 - Pneumonia, unspecified organism Code(s): J18.9 - Pneumonia, unspecified organism Status: Acute Assessment and Plan: CXR: Mild elevation left hemidiaphragm with mild streaky opacities in the left lower lung zone and favor atelectasis over pneumonia. Chest/abdomen/pelvis CTA: Scattered tree-in-bud opacities in the left upper lobe, lingula and right lower lobe consistent with multifocal pneumonia. - started on CAP tx: azithromycin and cefdinir, course to be completed on 04/08 - Viral PCR: ordered for Flu/COVID/RSV - Blood cultures collected on 04/03: NGTD - MRSA negative - originally requiring 2L NC, now back to baseline RA with no supplemental O2 requirement - Monitor vital signs, I&Os, neuro status and patient is a fall risk - Follow WBC, serum electrolytes, temperature curves and cultures (4) Osteonecrosis: Code(s): M87.9 - Osteonecrosis, unspecified Status: Acute Assessment and Plan: Chest/abdomen/pelvis CTA: Osteonecrosis at the bilateral femoral heads and subacute fracture of the right pubic body. Hip/pelvis XR: Osteonecrosis of the femoral heads. Mild osteoarthritis of the hips. Partially visualized expansion and slerosis of the right femoral diaphysis, whihc may be an old healed fracture or fibrous dysplasia. Lower extremity CT: Osteonecrosis in right femoral head. Mild right hip osteoarthritis. Lytic lesion in right femoral diaphysis. The differential diagnosis includes osteonecrosis and benign lesion such as fibrous dysplasia. Consult Orthopedics. Avascular necrosis appears to be chronic. Await PT/OT recommendations (5) Pubic bone fracture: Code(s): S32.509A - Unspecified fracture of unspecified pubis, initial encounter for closed fracture Status: Acute Assessment and Plan: Chest/abdomen/pelvis CTA: Osteonecrosis at the bilateral femoral heads and subacute fracture of the right pubic body. Ortho consulted. Asymptomatic. No surgical indications. WBAT with PT/OT pending further evaluation of the RLE on CT scan. (6) Erythema: Code(s): L53.9 - Erythematous condition, unspecified Status: Acute Assessment and Plan: RLE is warm, r
[2024-04-06 17:28] LABS: Pneumococcal Antigen Urine NOT DETECTED
[2024-04-06] MEDS: AZITHROMYCIN 250 MG TABLET 500 MG PO (20:26)
[2024-04-07 03:49] LABS: Legionella pneumophila Ag Ur NOT DETECTED
[2024-04-07 06:00] VITALS: BP 130/87; PULSE 78; RESP 20; TEMP 36.2; O2SAT 99
[2024-04-07 06:47] LABS: Basophils Percent Auto 0.8 % (0.2-1.2); Eosinophils Absolute Auto 0.1 K/mm3 (0-0.3); Hemoglobin 13.3 g/dL (14.0-18.0); Immature Granulocyte Absolute 0.01 K/mm3 (0.00-0.031); Immature Granulocyte Percent A 0.3 % (0-0.5); Lymphocytes Absolute Auto 1.25 K/mm3 (0.9-3.2); Mean Corpuscular HGB Conc 33.3 g/dl (32-36); Mean Corpuscular Hemoglobin 31.8 pg (26-34); Mean Corpuscular Volume 95.7 fl (80-100); Mean Platelet Volume 8.1 fl (7.4-10.4); Monocytes Absolute Auto 0.4 K/mm3 (0.1-0.6); Monocytes Percent Auto 10.2 % (2.6-8.5); Neutrophils Absolute Auto 2.1 K/mm3 (1.3-6.7); Neutrophils Percent Auto 54.7 % (45.5-73.1); Platelet Count Result 206 k/mm3 (150-375); Red Blood Count 4.18 M/mm3 (4.6-6.20); Red Cell Distribution Width 12.8 % (11.5-14.5); White Blood Count 3.9 K/mm3 (4.5-10.0)
[2024-04-07 06:53] LABS: Alanine Aminotransferase 25 U/L (6-50); Albumin Level 3.4 g/dL (3.5-5.1); Alkaline Phosphatase 178 U/L (38-126); Anion Gap 9 mmol/L (4-12); Aspartate Amino Transferase 40 U/L (17-59); Bilirubin,Total 0.9 mg/dL (0.2-1.3); Blood Urea Nitrogen 9 mg/dL (9-20); Calcium 8.7 mg/dL (8.4-10.2); Carbon Dioxide 23 mmol/L (22-30); Chloride 97 mmol/L (98-107); Estimated CRCL calculation 153 ml/min; Estimated Glomerular Filt Rate > 60; Glucose 97 mg/dL (65-110); Potassium 4.3 mmol/L (3.4-5.0); Sodium 129 mmol/L (137-145)
--- NOTE | 2024-04-07 09:13 | PM.DS ---
DS: Admitting Diagnosis Discharge Date 04/07/2024 Admitting Diagnosis hypoxic respiratory failure sepsis pneumonia osteonecrosis pubic bone fracture erythema alcoholism essential hypertension COPD DS: Discharge Diagnosis Discharge Diagnosis (1) Hypoxic respiratory failure: Qualifiers: Chronicity: acute Qualified Code(s): J96.01 - Acute respiratory failure with hypoxia Code(s): J96.91 - Respiratory failure, unspecified with hypoxia Status: Acute (2) Sepsis: Qualifiers: Acute respiratory failure type: with hypoxia Sepsis acute organ dysfunction status: with acute organ dysfunction Sepsis type: sepsis due to unspecified organism Severe sepsis acute organ dysfunction type: acute respiratory failure Severe sepsis shock status: without septic shock Qualified Code(s): A41.9 - Sepsis, unspecified organism; R65.20 - Severe sepsis without septic shock; J96.01 - Acute respiratory failure with hypoxia Code(s): A41.9 - Sepsis, unspecified organism Status: Acute (3) Pneumonia: Qualifiers: Laterality: bilateral Lung location: unspecified part of lung Pneumonia type: due to unspecified organism Qualified Code(s): J18.9 - Pneumonia, unspecified organism Code(s): J18.9 - Pneumonia, unspecified organism Status: Acute (4) Osteonecrosis: Code(s): M87.9 - Osteonecrosis, unspecified Status: Acute (5) Pubic bone fracture: Code(s): S32.509A - Unspecified fracture of unspecified pubis, initial encounter for closed fracture Status: Acute (6) Erythema: Code(s): L53.9 - Erythematous condition, unspecified Status: Acute (7) Alcoholism: Code(s): F10.20 - Alcohol dependence, uncomplicated Status: Chronic (8) Essential hypertension: Code(s): I10 - Essential (primary) hypertension Status: Chronic (9) COPD (chronic obstructive pulmonary disease): Qualifiers: COPD type: COPD with acute lower respiratory infection Qualified Code(s): J44.0 - Chronic obstructive pulmonary disease with (acute) lower respiratory infection Code(s): J44.9 - Chronic obstructive pulmonary disease, unspecified Status: Chronic DS: Summary Hospital Course Reason for hospitalization: hypoxic respiratory failure sepsis pneumonia osteonecrosis pubic bone fracture erythema alcoholism essential hypertension COPD Hospital Course: 68-year-old male with past medical history of COPD/emphysema with continued tobacco use, alcoholism, essential hypertension, and recent hospitalization at [facility] for cellulitis of the right foot who presented to the ER via EMS from home due to increased weakness and difficulty ambulating. EMS reported the patient was hypoxic on arrival with oxygen saturations of 89%. He was placed on 2 L nasal cannula and sats improved to 97%. Patient was meeting SIRs criteria at time of admission with tachycardia, tachypnea, suspected source and new o2 requirement. Chest XR showed mild elevation left hemidiaphragm with mild streaky opacities in the left lower lung zone and favor atelectasis over pneumonia. Obtained a chest/abdomen/pelvis CTA showing scattered tree-in-bud opacities in the left upper lobe, lingula and right lower lobe consistent with multifocal pneumonia. Patient started on IV antibiotics at that time. Patient was able to be weaned back to baseline room air and transitioned to PO antibiotics at time of discharge. The patient was admitted to [facility] for cellulitis and was discharged from [facility] on 04/03. On patients chest/abdomen/pelvis CTA there was osteonecrosis at the bilateral femoral heads and subacute fracture of the right pubic body. A hip/pelvis XR was obtained and showed osteonecrosis of the femoral heads. Mild osteoarthritis of the hips. Partially visualized expansion and slerosis of the right femoral diaphysis, whihc may be an old healed fracture or fib
[2024-04-07] MEDS: FOLIC ACID 1 MG TABLET PO (10:43)
[2024-04-07] MEDS: ENOXAPARIN 40 MG/0.4 ML SYRINGE SUB-Q (10:43)
[2024-04-07] MEDS: THIAMINE HCL 100 MG TABLET PO (10:43)
[2024-04-07] MEDS: CEFDINIR 300 MG CAPSULE PO (10:43)
[2024-04-07] MEDS: lisinopriL 10 MG TABLET PO (10:43)
== END 2024-04-07 11:45 | disposition home or self-care (01) | DRG 871 ==
LOC: ANHED 22:32 → ANH2MED 04-04 00:12
PROVIDERS: Emergency Medicine; Admitting Provider Internal Medicine; Emergency Provider Emergency Medicine; PCP Internal Medicine; Visit Provider Student in an Organized Health Care Education/Training Program
DX: A41.9 Sepsis, unspecified organism (principal); J18.9 Pneumonia, unspecified organism; J96.01 Acute respiratory failure with hypoxia; S32.591A Other specified fracture of right pubis, initial encounter for closed fracture; J44.0 Chronic obstructive pulmonary disease with (acute) lower respiratory infection; E87.1 Hypo-osmolality and hyponatremia; L03.115 Cellulitis of right lower limb; M87.852 Other osteonecrosis, left femur; M87.851 Other osteonecrosis, right femur; M16.0 Bilateral primary osteoarthritis of hip; R65.20 Severe sepsis without septic shock; I10 Essential (primary) hypertension; F10.20 Alcohol dependence, uncomplicated; X58.XXXA Exposure to other specified factors, initial encounter
CPT/HCPCS: 36415; 36600; 71045; 71275; 73521; 73630; 73700; 74174; 78315; 80048; 80053; 80202; 81003; 82565; 82805; 83605; 83690; 83735; 83880; 84100; 84443; 84484; 85025; 85610; 85730; 87040; 87449; 87637; 87641; 87899; 93005; 93922; 93971; 94640; 96361; 96365; 96366; 96367; 97161; 97165; 99285; A9270; A9503; J0456; J0696; J1650; J3370; J7030; Q9967